=== PATIENT | female | born 1965 | race Caucasian/White ===

== ENCOUNTER → 2018-07-14 | Outpatient (CLI) | payer OTHER ==
[~2018-07-14] MED LIST: FLUO-201 PO
--- NOTE | 2018-07-14 15:25 | EKG ---
FACILITY: [facility] - [place] PATIENT NAME: LINDA LOCKHART : [id number] MR: [id number] V: [id number] EXAM DATE: ORDERING PHYSICIAN: ELIECER CHI TECHNOLOGIST: MIRANDA Test Reason : SOB Blood Pressure : / mmHG Vent. Rate : 063 BPM Atrial Rate : 063 BPM P-R Int : 162 ms QRS Dur : 086 ms QT Int : 420 ms P-R-T Axes : 067 078 078 degrees QTc Int : 429 ms Normal sinus rhythm Normal ECG No previous ECGs available Confirmed by AKIKO GOEL ([id number]) on 07/14/2018 5:29:00 PM Referred By: ALON Confirmed By:AKIKO GOEL
--- NOTE | 2018-07-14 16:44 | RADIOLOGY IMAGING REPORT ---
FACILITY: [facility] - [place] PATIENT NAME: LINDA LOCKHART : [id number] MR: [id number] V: [id number] EXAM DATE: [id number] ORDERING PHYSICIAN: ELIECER CHI TECHNOLOGIST: Marisol Gil PROCEDURE:BILATERAL DIGITAL SCREENING MAMMOGRAM WITH CAD ASSISTED INTERPRETATION & 3D TOMOSYNTHESIS COMPARISON:09/18/14, 08/09/13 INDICATIONS:SCREENING/Asymptomatic VIEWS OBTAINED: Bilateral 2D full field CC & MLO & corresponding 3D tomography TISSUE DENSITY: Predominantly fatty tissue. FINDINGS: There is no mammographic finding suspicious for malignancy & no significant change compared to prior mammograms. DIAGNOSTIC CATEGORY 1--NEGATIVE. RECOMMENDATIONS: ROUTINE ANNUAL BILATERAL MAMMOGRAM AND CLINICAL EVALUATION. IMPRESSION: BIRADS 1: Negative. Dictated by: Brigida Mustafa M.D. on 07/14/2018 at 15:12 Transcribed by: JUSTIN on 07/14/2018 at 15:42 Approved by: Brigida Mustafa M.D. on 07/14/2018 at 16:43 [facility]
== END ==
LOC: MAMO 04:25
PROVIDERS: ATTEND Physician Assistant
DX: Z12.31 Encounter for screening mammogram for malignant neoplasm of breast (principal); R06.02 Shortness of breath
CPT/HCPCS: 77063; 77067; 93005

== ENCOUNTER 2018-09-13 01:44 | Observation (INO) | payer OTHER ==
[~2018-09-13] VITALS: Ht 170.2 cm; Wt 128.8 kg
[2018-09-13] VITALS (10 sets, daily range): BP systolic 112–145; BP diastolic 49–90
[~2018-09-13 01:44] MED LIST changes: +CHOL10005 PO; +METF-407 PO; +SCOP1PAT16 TD
[2018-09-13] MEDS ORDERED: ENOXAPARIN 40 MG/0.4ML SYR SC ONE (06:00)
[2018-09-13 06:06] LABS: PLATELET COUNT, AUTOMATED 296 K/uL (150-450)
[2018-09-13] MEDS ORDERED: NORMOSOL R SOLN(*) 1000 ML BAG 1,000 ML IV PRN (06:30)
[2018-09-13] MEDS ORDERED: cefOXitin/DEX(*) 2GM/50ML PREM 50 ML IVPB ONE (06:30)
[2018-09-13] MEDS ORDERED: LIDOCAINE/SOD BICARB 8.4% SYR ID ONE (06:30)
[2018-09-13] MEDS ORDERED: FAMOTIDINE 20 MG TAB PO ONE (06:30)
[2018-09-13] MEDS ORDERED: MIDAZOLAM 2 MG/2 ML VIAL IVP PRN (06:30)
[2018-09-13] MEDS ORDERED: ROPIVACAINE 0.2% 20 ML VIAL ONE (06:49)
[2018-09-13] MEDS ORDERED: MANNITOL* (20%)100 GM/500ML BG 500 ML IVPB ONE (06:49)
[2018-09-13] MEDS ORDERED: fentaNYL CITR 250 MCG/5 ML AMP ONE (07:13)
[2018-09-13] MEDS ORDERED: PROPOFOL EMUL(*) 10MG/ML 20 ML 20 ML ONE (07:16)
[2018-09-13] MEDS ORDERED: ROCURONIUM BROM 10 MG/ML 10 ML ONE (07:16)
[2018-09-13] MEDS ORDERED: LIDOCAINE 2% IV 100 MG/5ML SYR ONE (07:17)
[2018-09-13] MEDS ORDERED: DEXAMETHASONE SOD 4 MG/ML VIAL ONE (07:52)
[2018-09-13] MEDS ORDERED: KETAMINE HCL 200 MG/20 ML MDV ONE ×4 (08:05→11:31)
--- NOTE | 2018-09-13 08:52 | Short(Outpt) Discharge Summary ---
Discharge Summary Reason for Hosp/Final Diag: (1) Family history of colon cancer Hospital Course & Plan: Colonoscopy with polypectomy x4 completed without problems. Departure Discharge to: Home, Self Care Discharge Instructions Home Meds Reported Medications Scopolamine (Scopolamine) 1 Mg/3 Day Patch.td.3, 1.[address] BEHIND EAR NIGHT BEFORE SURGERY 09/12/18 Cholecalciferol (Vitamin D3) (VITAMIN D3) 1,000 Unit Tablet, 5000 UNIT PO 5X/WEEK, TAB 09/06/18 Metformin Hcl (GLUCOPHAGE XR) 500 Mg Tab.er.24h, 2 TAB PO HS, TAB 09/06/18 Discontinued Reported Medications Fluoxetine Hcl (PROZAC) 10 Mg Capsule, 10 MG PO QDAY, CAPSULE 11/10/15 Diet: Regular Activity: As Tolerated Special Instructions: Your colonoscopy was completed without any problems and your prep was excellent (Good Job!!). I removed 4 polyps from your colon and they were sent to pathology. My office will call you in the next week or two and let you know what the polyps are and when your next colonoscopy should be (either 3 or 5 years) depending on pathology results. ROBERTO CARLOS THRASHER MD Sep 13, 2018 08:52
[2018-09-13] MEDS ORDERED: fentaNYL CITR 100 MCG/2 ML AMP ONE ×4 (10:24→12:35)
[2018-09-13] MEDS ORDERED: ONDANSETRON 4 MG/2 ML VIAL ONE (12:36)
[2018-09-13] MEDS ORDERED: SUGAMMADEX SOD 500 MG/5 ML SDV ONE (12:37)
[2018-09-13] MEDS ORDERED: ACETAMINOPHEN 325 MG TAB PO PRN (13:20)
[2018-09-13] MEDS ORDERED: HYDROmorphone HCL 2 MG TAB PO PRN (13:20)
[2018-09-13] MEDS ORDERED: PROMETHAZINE 25 MG/ML 1 ML AMP IVP PRN (13:20)
[2018-09-13] MEDS ORDERED: ONDANSETRON 4 MG/2 ML VIAL IV PRN (13:20)
[2018-09-13] MEDS ORDERED: SIMETHICONE 80 MG CHEW CHEW PRN (13:20)
[2018-09-13] MEDS ORDERED: DOCU240C67 PO (13:35)
[2018-09-13] MEDS ORDERED: IBUP800T37 PO (13:35)
[2018-09-13] MEDS ORDERED: OXYC-865 PO (13:35)
--- NOTE | 2018-09-13 14:21 | OPERATIVE REPORT 1 ---
EVENT DATE: September 13, 2018 ENDOSCOPIST: Misael Pierce MD ANESTHESIOLOGIST: Jairon Gutierrez MD ANESTHESIA: General endotracheal anesthesia as this procedure was being completed before Dr. Gonzalez with [facility] was completing his gynecologic surgery. PREOPERATIVE DIAGNOSIS Family history of colorectal cancer. POSTOPERATIVE DIAGNOSES 1. Family history of colorectal cancer. 2. Colon polyps. PROCEDURE PERFORMED Colonoscopy with snare polypectomy. SPECIMENS 1. Splenic flexure polyp. 2. Descending colon polyp. 3. Sigmoid colon polyp #1. 4. Sigmoid colon polyp #2. FINDINGS This patient had several really small, flat polyps that were removed, but then she had a larger centimeter, pedunculated polyp in her sigmoid colon, labeled sigmoid colon polyp #1. INDICATIONS This is a 53-year-old female who was requesting to have colonoscopy for screening. This would be her first colonoscopy. She does have a family history of colon cancer. She has no GI symptoms. DESCRIPTION OF PROCEDURE The patient was brought to the operating room, placed supine on the operating table. General endotracheal anesthesia was administered, and she was placed in Yellofins. The colonoscope was tested to ensure it was completely functional and lubricated, then inserted into her rectum through her anus. I advanced the scope all the way through to the cecum and then slowly withdrew the scope as I looked at all mucosal surfaces for any abnormalities. In the sigmoid colon, descending colon, and sigmoid colon, I found several polyps which were all removed. When the tip was in the rectum, I retroflexed the scope to look at the proximal anus and distal rectum, and no abnormalities were found there. I then desufflated as much of the colon as I could and withdrew the scope from the patient's body. The prep was excellent, and withdrawal time was 20 minutes. The patient tolerated this portion of the procedure without any problems, and then Dr. Gonzalez took over to begin his portion of the surgery. MESERET
[2018-09-13] MEDS: DLR(*) 1000 ML BAG 1,000 ML IV PRN (14:54)
[2018-09-13] MEDS ORDERED: SULF-198 PO (15:21)
--- NOTE | 2018-09-13 15:39 | Post Operative Note ---
Operative Note - MANPOWER DEVELOPMENT MANAGER Operative Day Date: Sep 13, 2018 Time: 15:27 Physicians Surgeon: Carlos Lpn Private Duty: Leticia Braun Anesthesia: GETA Diagnosis Pre-Op Diagnosis: Menorrhagia Uterine fibroids Enlarged uterus Post-Op Diagnosis: same Procedure Findings: fibroids enlarged uterus 950 gms Extra time 2 hours due to difficulty and enlarged uterus Procedure(s): RATLH Bilateral salpingectomy Cystoscopy Specimen Removed:(Maybe N/A): uterus fibroids Complications: none [id number] Fluids Fluids: IV crystalliod see anethesia record Estimated Blood Loss: 200 ml Dictated Date OP Note Dictated: Sep 13, 2018 Time OP Note Dictated: 15:30 Copies to: NAKIA BANEGAS MD ; NAKIA BANEGAS MD Sep 13, 2018 15:39
[2018-09-13] MEDS: KETOROLAC 30 MG/ML VIAL IVP SCH ×2 (18:34→23:24)
--- NOTE | 2018-09-13 19:19 | OPERATIVE REPORT 1 ---
EVENT DATE: September 13, 2018 SURGEON: Rolly Gonzalez MD ANESTHESIOLOGIST: Jairon Gutierrez MD ANESTHESIA: General endotracheal. [employer] DRILLING MACHINE OPERATOR: Leticia Braun PA-C PREOPERATIVE DIAGNOSES 1. Menorrhagia. 2. Uterine fibroids. 3. Enlarged uterus. POSTOPERATIVE DIAGNOSES 1. Menorrhagia. 2. Uterine fibroids. 3. Enlarged uterus. PROCEDURES PERFORMED 1. Robotic-assisted total laparoscopic hysterectomy. 2. Bilateral salpingectomy. 3. Diagnostic cystoscopy. 4. Morcellation of the uterus intracorporeal. Extra time required due to difficulty of this procedure and skill and expertise required equals 120 minutes. ESTIMATED BLOOD LOSS 200 mL FLUIDS IV crystalloid. Please see the anesthesia record. FINDINGS Due to the patient's obesity, large abdominal wall, significant intra-abdominal fat, enlarged liver that did appear to be a fatty liver, normal-appearing gallbladder, adhesions of the right lower quadrant to small intestine and of the descending colon to the left lower quadrant, normal-appearing ovaries bilaterally. PROCEDURE IN DETAIL The patient was brought to the operating room with a working IV, placed in the dorsal supine position. She was placed under general endotracheal anesthesia and moved to the dorsal lithotomy position. She was then prepped and draped in the usual sterile fashion. A weighted speculum was placed in the vagina. The cervix was grasped on the anterior lip with a single-toothed tenaculum. It was sounded to a depth of 16 cm anteverted. Cervix was dilated in order to accommodate a large VCare uterine manipulator, which was passed through the cervix into the uterus. Bulb inflated and secured, and the VCare cup was sutured to the cervix. The pneumo cup was approximated against the VCare cup and secured in place. A Sotelo catheter was placed to dependent drainage. Gloves were changed. The legs were brought back to the supine position. We proceeded with the laparoscopy. Target anatomy was identified just below the umbilicus, and 12 cm were measured above this in the midline. A midline incision was made in that location, a transverse 8 mm size for the midline port. The skin was elevated with towel clips while a Veress needle was passed through this incision into the abdomen, and a pneumoperitoneum was created to an intra- abdominal pressure of 20 mmHg. This was then removed, and an 8 mm bladeless trocar was passed through this incision into the abdomen under direct visualization with the scope. Once in place, additional ports were measured at 8 cm left and right lateral from this umbilical port. An assistant floor covering printer port was placed on the far left, followed by robotic port lateral to the umbilical port on the left and two robotic ports 8 cm spacing right lateral of the umbilical port, all performed under direct visualization with the scope. Remote setter was verified on all ports, and the robot was brought over the patient. The patient was moved into the Trendelenburg position 23 degrees. The robot was docked, and the targeting procedure was performed. The remaining arms were docked, and instruments were followed into the abdomen under direct visualization. I then scrubbed out and presented to the console. The hysterectomy proceeded as follows: The right fallopian tube was dissected away from its pelvic connection, and the utero-ovarian ligament was transected with the vessel sealer. The round ligament was cauterized and transected with the vessel sealer while the uterus was manipulated to the patient's left to expose the broad ligament. This was dissected through and down to the VCare cup. Careful dissection anteriorly pushed the bladder well away from the operative area, and posteriorly, the vessels were skeletonized. Once the uterine vessels were adequately skeletonized, they were cauterized in a perpendicular fashion and transected, followed by parallel bites along the length of the lower uterus and cervix down to the VCare cup. The vascular pedicle fell away nicely. A colpotomy incision was performed anteriorly to confirm, indeed, that was where the colpotomy cup was. The uterus was deviated toward the patient's right side, and we proceeded to perform the hysterectomy on the left side of the uterus as follows: The left fallopian tube was dissected away from its mesosalpinx connection using the vessel sealer. The utero-ovarian ligament was cauterized and transected as well and to further us manipulating the uterus towards the patient's right. This exposed the round ligament, which was cauterized and transected. We entered then the broad ligament, which we completed the dissection anteriorly, followed by posteriorly skeletonizing the vessels. The uterine vasculature was then taken at a right angle and transected, followed by parallel bites along the length of the lower uterus and the cervix down to the VCare cup. The colpotomy incision was then completed circumferentially through the remaining vaginal tissue as well as the uterosacral ligaments bilaterally. Much manipulation was required in order to obtain an exposure adequate to perform this, and once completed, the uterus was freed from its pelvic attachment. A few moments were taken to perform cautery on some small bleeders, and then attention was turned to morcellating. The uterus was bivalved in half, and this exposed the uterine fibroid within which was dissected out using the monopolar scissors and careful traction and countertraction. A significant amount of time was performed in trying to remove this uterine fibroid. Once accomplished, the uterus was attempted to be removed through the vagina, but was still too big. This required me to continue the incision bivalving the uterus into two halves. Each half was then individually removed through the vagina. The remaining uterine fibroid was attempted to be removed vaginally, but was also too big; therefore, it was transected into two pieces, and these were removed through the vagina. The total extra time required for this morcellation and the difficulty in the procedure was an additional 120 minutes of the case time. At this point, the pelvis was irrigated and suctioned dry. The vagina was sutured with an 0 Vicryl in both angle stitches incorporating the uterosacral ligament bilaterally. The remaining vaginal cuff was suture repaired with a 2-0 V-Loc stitch in a running and locking fashion. Upon completion, this was completely hemostatic. The pelvis was copiously irrigated. The descending colon in the left lower quadrant was dissected away from its pelvic wall adherence as well as the small bowel in the right pelvic sidewall. This was taken down to a safe level, and at this point, the procedure was terminated. The pelvis was copiously irrigated and suctioned dry. No visible bleeders. No visible complications. Therefore, the pneumoperitoneum was released. All instruments were removed. The robot was undocked and taken away. Skin incisions were repaired with 4-0 Monocryl simple subdermal. Diagnostic cystoscopy was performed confirming ureteral patency of both ureters with strong urine jets bilaterally. The vagina was inspected for injury and found to be injury-free. The cuff was inspected and found to be intact. No other visible issues. The patient was returned to the dorsal supine position, awakened from general anesthesia in stable condition, and taken to Recovery. Sponge, lap, instrument, and needle counts were all correct times three. MESERET
[2018-09-13] MEDS: FAMOTIDINE 20 MG TAB PO SCH (20:45)
[2018-09-13] MEDS: DOCUSATE CALCIUM 240 MG CAP PO SCH (20:45)
[2018-09-14] MEDS: DLR(*) 1000 ML BAG 1,000 ML IV PRN (01:12)
[2018-09-14 03:08] VITALS: BP 114/52
[2018-09-14] MEDS: KETOROLAC 30 MG/ML VIAL IVP SCH (06:15)
[2018-09-14 06:16] LABS: PLATELET COUNT, AUTOMATED 248 K/uL (150-450)
[2018-09-14 07:37] VITALS: BP 120/71
--- NOTE | 2018-09-14 08:04 | OB/GYN Progress Note ---
OB Subjective Progress Notes Subjective Feeling well. Pain well controlled. Ambulating to BR regularly and well. Passing gas. Ready to go home. GI: POS Nausea : Voiding Well Pain: Mild OB Objective Physical Exam Vital Signs Date Time Temp Pulse Resp B/P (MAP) Pulse Ox O2 Delivery O2 Flow Rate FiO2 09/14/18 03:08 99.0 61 16 114/52 (72) 96 Nasal Cannula 0.5 Intake and Output 09/14/18 07:00 Intake Total 3548 ml Output Total 400 ml Balance 3148 ml Intake Oral 500 ml IV Total 3048 ml Output Urine Total 200 ml Estimated Blood Loss 200 ml # Voids 3 General Appearance: Alert/Awake/No Acute Distress Neurological: No Gross deficits Cardiovascular: Normal Rhythm & Peripheral Pulses, Regular Rate and Rhythm Respiratory: No Respiratory Distress, Clear to Auscultation Abdomen: Soft, Non-Tender, Non-Distended, Bowel Sounds Present Incision: Clean, Dry, Intact, Dermabond Extremities: No Cyanosis,Clubbing or Edema Integumentary: Skin Intact without Lesions or Rash Psychological: Alert & Oriented X3, Appropriate Mood & Affect Result Diagram: 09/14/18 0608 Assessment and Plan [employer] Plan: Routine Post-Op Care, Discharge Home Today Problems: (1) Enlarged uterus (2) Irregular menstrual bleeding (3) Leiomyoma (4) History of robot-assisted laparoscopic hysterectomy (5) Other specified aftercare following surgery Assessment & Plan: reviewed her surgery and discharge instructions and precautions. F/U at 2 weeks my office. Call with problems. Home with 3d abx to cover UTI. NAKIA BANEGAS MD Sep 14, 2018 08:04
[2018-09-14] MEDS ORDERED: ENOXAPARIN 40 MG/0.4ML SYR SC SCH (09:00)
[2018-09-14] MEDS: FAMOTIDINE 20 MG TAB PO SCH (09:23)
[2018-09-14] MEDS: DOCUSATE CALCIUM 240 MG CAP PO SCH (09:23)
[2018-09-14 11:00] VITALS: BP 117/71
[2018-09-14] MEDS ORDERED: IBUPROFEN 800 MG TAB PO PRN (12:00)
[2018-09-14] MEDS ORDERED: INFLUENZA VIRUS VAC 0.5ML SYR IM ONLY ONE (13:20)
== END 2018-09-14 08:04 | disposition home or self-care (01) ==
LOC: OR 01:44 → PED 14:15 → INTOOBSV 14:15
PROVIDERS: ADMIT Obstetrics & Gynecology; ATTEND Obstetrics & Gynecology
DX: Z12.11 Encounter for screening for malignant neoplasm of colon (principal); D12.4 Benign neoplasm of descending colon; D12.5 Benign neoplasm of sigmoid colon; D25.9 Leiomyoma of uterus, unspecified; N72 Inflammatory disease of cervix uteri; Z80.0 Family history of malignant neoplasm of digestive organs; E66.01 Morbid (severe) obesity due to excess calories; Z68.41 Body mass index [BMI] 40.0-44.9, adult; F32.9 Major depressive disorder, single episode, unspecified; E11.9 Type 2 diabetes mellitus without complications; Z79.84 Long term (current) use of oral hypoglycemic drugs
CPT/HCPCS: 00811; 36415; 36416; 45385; 58554; 82948; 84703; 85014; 85018; 85025; 88305; 88307; 96372; G0378; J0694; J1100; J1650; J1885; J2001; J2405; J2704; J2795; J3010; J3490; S2900